=== PATIENT | female | born 1995 | race Caucasian/White ===

== ENCOUNTER → 2019-04-13 | Outpatient (REF) | LOC: M LAB LCGH 11:45 | PROVIDERS: ATTEND Surgery | DX: K82.8 Other specified diseases of gallbladder (principal) ==

== ENCOUNTER 2019-05-04 09:58 | Inpatient (IN) | payer OTHER ==
[~2019-05-04] VITALS: Ht 175.3 cm; Wt 117.3 kg
[2019-05-04 11:04] LABS: HEMATOCRIT 41.8 % (36.0-47.0); HEMOGLOBIN 13.8 g/dl (12.0-15.5); MEAN CORPUSCULAR VOLUME 84.8 fl (80.0-96.0); PLATELET COUNT, AUTOMATED 324 10^3/uL (150-450); RED BLOOD COUNT 4.93 10^6/uL (4.00-5.40); WHITE BLOOD COUNT 6.7 10^3/uL (4.0-10.0)
[2019-05-04 11:33] LABS: AMPHETAMINES LEVEL URINE NEGATIVE (NEGATIVE); BARBITURATES URINE NEGATIVE (NEGATIVE); BENZODIAZEPINES URINE NEGATIVE (NEGATIVE); CANNABINOIDS URINE NEGATIVE (NEGATIVE); COCAINE METABOLITE URINE NEGATIVE (NEGATIVE); METHADONE URINE NEGATIVE (NEGATIVE); OPIATES URINE NEGATIVE (NEGATIVE); PHENCYCLIDINE URINE NEGATIVE (NEGATIVE)
[2019-05-04 11:34] LABS: HCG, SERUM QUALITATIVE NEGATIVE (NEGATIVE)
[2019-05-04 11:40] LABS: ACETAMINOPHEN LEVEL < 2.0 UG/ML (10.0-30.0); ALBUMIN 3.9 GM/DL (3.2-5.2); ALT/SGPT 44 U/L (12-78); BILIRUBIN,DIRECT 0.1 MG/DL (0.0-0.2); BILIRUBIN,TOTAL 0.4 MG/DL (0.2-1.0); BLOOD UREA NITROGEN 8 MG/DL (7-18); CALCIUM LEVEL 9.6 MG/DL (8.5-10.1); CARBON DIOXIDE LEVEL 26 MEQ/L (21-32); CHLORIDE LEVEL 109 MEQ/L (98-107); CREATININE FOR GFR 0.72 MG/DL (0.55-1.30); ETHYL ALCOHOL (ETHANOL) < 0.003 % (0.000-0.010); GLOMERULAR FILTRATION RATE > 60.0 (>60); GLUCOSE, FASTING 86 MG/DL (70-100); POTASSIUM SERUM 4.1 MEQ/L (3.5-5.1); SALICYLATE LEVEL 2.4 MG/DL (5.0-30.0); SODIUM LEVEL 140 MEQ/L (136-145); THYROID STIMULATING HORMONE 0.703 uIU/ML (0.358-3.740); TOTAL PROTEIN 7.3 GM/DL (6.4-8.2)
[2019-05-04] MEDS ORDERED: MOM 30ML SUSPENSION UDC PO PRN ×3 (18:45→19:00)
[2019-05-04] MEDS ORDERED: ACETAMINOPHEN TAB 650MG DOSE (2X325MG) PO PRN ×3 (18:45→19:00)
[2019-05-04] MEDS ORDERED: MAALOX 30 ML SUSP *UDC PO PRN ×2 (18:45→19:00)
[2019-05-04] MEDS ORDERED: traZODone 50 MG TAB PO PRN ×3 (18:45→19:00)
[2019-05-04] MEDS ORDERED: LORazepam 2 MG TAB PO PRN (19:00)
[2019-05-04] MEDS ORDERED: THIAMINE 100 MG TAB PO SCH (21:00)
[2019-05-04 21:40] VITALS: BP 137/86
[2019-05-05 06:34] VITALS: BP 121/82
[2019-05-05] MEDS ORDERED: FOLIC ACID 1 MG TAB PO SCH (09:00)
[2019-05-05] MEDS ORDERED: MULTIVITAMINS/MINERALS THERAP 1 TAB PO SCH (09:00)
--- NOTE | 2019-05-05 11:55 | MHHPEPDOC ---
[facility] History & Physical History and Physical DATE OF ADMISSION: May 04, 2019 at 18:58 New Patient Daksha Jimenez Select Gender MRN: N/A Date of : MM/DD/YYYY Date of Service: 05/05/2019 Chief Complaint "I just had a really bad day." History of Present Illness The patient, a 24-year-old woman with a history of very mild depression with no past major psychiatric history, presents to [facility] after being referred by her therapist. She reports that she has had significant difficulties with multiple stressors on the day in question, but had noted that in the weeks prior she had been doing quite well with her depression, at her chronic baseline with mild low mood at times but no sustained neurovegetative symptoms of depression. When patient was met with, she requested to leave, as she reported that she had tried medication in the past but had not been suicidal since taking a nap in the ER. She had been amenable on the unit and had not demonstrated any concerning ideation and has been very cooperative. Review Of Systems Depression: The patient reports having episodes in the past but no symptoms currently. Anxiety: The patient denies any excessive worry associated with physical symptoms. They deny any experience of discreet panic in the past. Evangelina: The patient denies any episodes of euphoria/dysphoria associated with decreased need for sleep, hedonism, talkatively or impulsivity lasting longer than 5 days. Psychotic: The patient denies any experiences of auditory or visual hallucinations. They deny any episodes of paranoia or delusional thinking in the past Trauma: The patient denies any traumatic events associated with nightmares or intrusive thoughts. Borderline: The patient screens negative for borderline personality at this junction. Past Psychiatric History Has tried sertraline in the past but reports that it was unhelpful. No history of admissions or other major involvement in the psychiatric community. Allergies Please see below. Family Psychiatric History The patient reports having a sister with significant mental health problems. Reports that she has had a cousin, uncle, and aunt commit suicide. Social History The patient currently lives with her sister. Never with no children. She lives in an apartment by college and is a current college student. She reports that she lives with her sister only temporarily from Saturday to Saturday. She has no legal problems. She reports her parents were when she was 18 and that, despite having a good relationship with her mother, she has significant time away from her, as she [place] of [place]. She reports having a good relationship with her father. Substance Abuse History The patient denies any excessive alcohol use, tobacco or illicit drug use, denies history of substance use treatment. Medical History Patient has no significant past medical history. Mental Status Examination General: Well dressed with good hygiene Speech: Spontaneous and fluid Thought processes: Linear and logical MSK: Smooth and coordinated gait, no signs of tremors or involuntary orofacial movements Thought content: Future orientated Abstract reasoning, and computation: Intact Description of associations: Intact Description of abnormal or psychotic thoughts: Denies any suicidal or homicidal ideation. Denies any auditory or visual hallucinations. Does not appear to be responding to internal stimuli. Does not appear to be endorsing any bizarre or paranoid ideation. Judgment: fair Insight: fair Orientation: Alert and orientated 3 Cognition: Grossly normal Recent and remote memory: Intact Attention span and concentration: Intact Fund of knowledge: Adequate Mood: "okay" Affect: Euthymic with a full range Diagnoses Adjustment disorder with disruption of mood and conduct. Assessment and Plan The patient, a 24-year-old woman with a history of mild depression, presents after multiple stressors caused her to have some suicidal thoughts. She reports that she was doing quite well with her treatment, as she is in therapy with [facility]. She no longer has any suicidal ideation and had not been reevaluated in the ER. She was admitted and observed; however, she does not meet involuntary criteria in my clinical judgment, as she no longer is suicidal and has had no homicidality, is able to attend to her needs, not significantly impaired by a mental health disorder, and declines further voluntary admission. Disposition Same-day discharge. Problem List 1. Ineffective coping. Initial Treatment Plan 1. Patient was admitted on a 9.39 legal status. 2. Complete history was obtained. 3. With patients permission, family will be contacted and database will be expanded. 4. Patients medication regimen will be reviewed and changed accordingly. 5. Patient will be provided with protected environment. 6. Patient will be treated with individual, group, and milieu therapies. 7. Patient will receive supportive psych-education. 8. Discharge planning will commence immediately. 9. Outpatient follow-up treatment will be strongly recommended. 10. The initial treatment plan will focus initially on: Estimated Length Of Stay Same-day discharge. Time Spent 45 minutes. Vital Signs Vital Signs Date Time Temp Pulse Resp B/P (MAP) Pulse Ox O2 Delivery O2 Flow Rate FiO2 05/05/19 06:34 97.3 77 12 121/82 (95) 05/04/19 19:34 96 Room Air Medications No Active Prescriptions or Reported Meds Allergies Coded Allergies: No Known Allergies (Verified Allergy, Unknown, 05/04/19) LULY MONIQUE DO May 05, 2019 11:55
--- NOTE | 2019-05-05 11:55 | MHDSPDOC ---
[facility] Discharge Summary Discharge Summary DATE OF ADMISSION: May 04, 2019 at 18:58 DATE OF DISCHARGE: 05/05/19 DISCHARGE DIAGNOSES: Adjustment disorder with disruption of mood and conduct. Please see h/p for full clinical eval and course Vital Signs/I&Os Vital Signs Date Time Temp Pulse Resp B/P (MAP) Pulse Ox O2 Delivery O2 Flow Rate FiO2 05/05/19 06:34 97.3 77 12 121/82 (95) 05/04/19 19:34 96 Room Air Medications No Active Prescriptions or Reported Meds Allergies Coded Allergies: No Known Allergies (Verified Allergy, Unknown, 05/04/19) LULY MONIQUE DO May 05, 2019 11:55
== END 2019-05-05 14:00 | disposition home or self-care (01) | DRG 882 ==
LOC: M ED 09:58 → M ED INP 18:58 → M PSY 21:32
PROVIDERS: ADMIT Psychiatry & Neurology Addiction Medicine; ATTEND Psychiatry & Neurology Addiction Medicine
DX: F43.25 Adjustment disorder with mixed disturbance of emotions and conduct (principal)

== ENCOUNTER → 2022-11-14 | Outpatient (REF) | payer OTHER | LOC: M LAB REF 11:28 | PROVIDERS: ATTEND Internal Medicine Gastroenterology | DX: R19.7 Diarrhea, unspecified (principal); R63.4 Abnormal weight loss ==

== ENCOUNTER 2022-12-03 10:27 | Day surgery (SDC) | payer OTHER ==
[~2022-12-03] VITALS: Ht 175.3 cm; Wt 87.1 kg
[~2022-12-03 10:27] MED LIST: NS 1,000 ML IV ONE; ONDA4TAB6 PO
[2022-12-03] MEDS ORDERED: LIDOCAINE 2% 100MG/5ML SDV (FOR ANES.) As Ordered ONE (12:34)
[2022-12-03] MEDS ORDERED: propofoL 200 MG/20 ML VIAL As Ordered ONE ×2 (12:34→13:45)
[2022-12-03] MEDS ORDERED: fentaNYL 100 MCG/2 ML INJECTION As Ordered ONE (12:35)
[2022-12-03 14:29] VITALS: BP 122/71
== END 2022-12-03 14:28 | disposition home or self-care (01) ==
LOC: M OPP 10:27
PROVIDERS: ATTEND Internal Medicine Gastroenterology
DX: K63.5 Polyp of colon (principal); K64.0 First degree hemorrhoids; K63.89 Other specified diseases of intestine; K44.9 Diaphragmatic hernia without obstruction or gangrene; K29.50 Unspecified chronic gastritis without bleeding; F17.200 Nicotine dependence, unspecified, uncomplicated
CPT/HCPCS: 43239; 45380; 45385; 88305; J3010